=== PATIENT | female | born 1960 ===

== ENCOUNTER 2018-08-24 14:06 | Outpatient (CLI) | payer BC | END 2018-08-24 14:07 | disposition home or self-care (01) | LOC: C.MAMMO 14:06 | DX: Z12.31 Encounter for screening mammogram for malignant neoplasm of breast (principal) ==

== ENCOUNTER 2018-09-09 11:25 | Emergency (ER) | payer BC ==
[2018-09-09 11:25] VITALS: BMI 25.5
[2018-09-09 11:41] VITALS: RESP 16; TEMP 98
[2018-09-09] MEDS ORDERED: Lidocaine 5% Patch TD STA (11:56)
[2018-09-09] MEDS ORDERED: Lidocaine 5% Patch TD ONE (12:04)
--- NOTE | 2018-09-09 12:38 | RAD ---
Date of service: 09/09/2018 PROCEDURE: Radiographs of the Lumbar Spine. HISTORY: pain after she lifted a heavy box COMPARISON: No prior. TECHNIQUE: 5 views obtained. FINDINGS: BONES: Normal alignment. No listhesis. No fracture. DISC SPACES: Unremarkable. OTHER FINDINGS: None. IMPRESSION: Unremarkable radiographs of the lumbar spine.
--- NOTE | 2018-09-09 13:54 | C.PDOC ---
History Of Present Illness 58 year old female presents to the emergency department with complaints of lower back pain after she lifted something heavy last night. Patient denies urinary symptoms, retention, incontinence, and radiation of pain. Time Seen by Provider: 09/09/18 11:46 Chief Complaint (Nursing): Back Pain History Per: Patient History/Exam Limitations: no limitations Onset/Duration Of Symptoms: Days (1) Current Symptoms Are (Timing): Still Present Quality Of Discomfort: "Pain" Associated Symptoms: None Past Medical History Reviewed: Historical Data, Nursing Documentation, Vital Signs Vital Signs: Last Vital Signs Temp 98 F 09/09/18 11:38 Pulse 69 09/09/18 11:38 Resp 16 09/09/18 11:38 BP 164/88 H 09/09/18 11:38 Pulse Ox 100 09/09/18 11:38 - Medical History PMH: Depression, HTN Denies: Chronic Kidney Disease Family History: States: Diabetes - Social History Hx Tobacco Use: No Hx Alcohol Use: No Hx Substance Use: No - Immunization History Hx Tetanus Toxoid Vaccination: No Hx Influenza Vaccination: No Hx Pneumococcal Vaccination: No Review Of Systems Except As Marked, All Systems Reviewed And Found Negative. Constitutional: Negative for: Fever, Chills Genitourinary: Negative for: Dysuria, Frequency, Incontinence Musculoskeletal: Positive for: Back Pain (lower) Neurological: Negative for: Weakness, Numbness Physical Exam - Physical Exam Appears: Non-toxic, No Acute Distress Skin: Normal Color, Warm, Dry Head: Atraumatic, Normacephalic Eye(s): bilateral: Normal Inspection Neck: Normal, Supple Chest: Symmetrical, No Tenderness Gastrointestinal/Abdominal: Soft, No Tenderness, No Guarding, No Rebound Back: Vertebral Tenderness (to L-spine), Muscle Spasm (bilateral) Neurological/Psych: Oriented x3, Normal Speech, Normal Cognition ED Course And Treatment O2 Sat by Pulse Oximetry: 100 (RA) Pulse Ox Interpretation: Normal - Other Rad XR L-Spine X-Ray: Viewed By Me, Read By Radiologist Interpretation: Date of service: 09/09/2018. PROCEDURE: Radiographs of the Lumbar Spine. HISTORY: pain after she lifted a heavy box. COMPARISON: No prior. TECHNIQUE: 5 views obtained. FINDINGS: BONES: Normal alignment. No listhesis. No fracture. DISC SPACES: Unremarkable. OTHER FINDINGS: None. IMPRESSION: Unremarkable radiographs of the lumbar spine. Progress Note: Plan: Valium. Lidoderm. Toradol. XR L-Spine. On re- evaluation patient feels better, ambulatory with no neuro deficict. Patient is stable to be d/c home with PMD follow up. Disposition - Disposition Disposition: HOME/ ROUTINE Disposition Time: 13:52 Condition: IMPROVED Additional Instructions: Follow up with PMD within 1-2 days. Return to ED if feel worse. 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 - Scribe Statement The provider has reviewed the documentation as recorded by the Scribe (Sharad Rocha) All medical record entries made by the Scribe were at my direction and personally dictated by me. I have reviewed the chart and agree that the record accurately reflects my personal performance of the history, physical exam, medical decision making, and the department course for this patient. I have also personally directed, reviewed, and agree with the discharge instructions and disposition.
[2018-09-09 14:02] VITALS: BP 149/79; PULSE 81
[2018-09-09 15:27] VITALS: O2SAT 100
== END 2018-09-09 14:01 | disposition home or self-care (01) ==
LOC: C.ER 11:25
DX: M54.5 Low back pain (principal)
CPT/HCPCS: 72100; 96372; 99283; J1885